=== PATIENT | male | born 1970 | race Caucasian/White ===

== ENCOUNTER 2018-04-20 15:32 | Inpatient (IN) | payer MEDICARE, MEDICAID ==
[~2018-04-20] VITALS: Ht 175.3 cm; Wt 108.0 kg
[2018-04-20 16:32] VITALS: BP 148/102
[2018-04-20 17:01] LABS: PLATELET COUNT 222 x10^3mcL (130-400)
[2018-04-20 17:04] LABS: RED CELL DISTRIBUTION WIDTH 16.5 % (11.5-14.5)
[2018-04-20 17:39] LABS: BAND NEUTROPHIL 2 % (0-10); BASOPHIL 0 % (0-2); MONOCYTE 6 % (0-7); SEGMENTED NEUTROPHILS 80 % (37-75); rbc morphology (normal/abnorm) ABNORMAL (NORMAL)
[2018-04-20 17:47] LABS: ALKALINE PHOSPHATASE 96 U/L (46-116); ALT/SGPT 259 U/L (16-63); AST/SGOT 621 U/L (15-37); CALCIUM 8.6 mg/dL (8.5-10.1); CARBON DIOXIDE 18.1 mmol/L (21-32); CHLORIDE SERUM 88 mmol/L (98-107); CREATININE SERUM 1.8 mg/dL (0.7-1.3); GFR1 43 mL/min; GLUCOSE SERUM 138 mg/dL (74-106); TOTAL PROTEIN, SERUM 7.8 g/dL (6.4-8.2)
[2018-04-20 18:30] LABS: ALBUMIN 2.8 g/dL (3.4-5.0)
[2018-04-20 18:31] LABS: POTASSIUM SERUM 6.2 mmol/L (3.5-5.1); SODIUM SERUM 120 mmol/L (136-145)
[2018-04-20 18:38] LABS: UA SPECIFIC GRAVITY >=1.030 (1.005-1.035); microscopic required? YES; urine erythrocyte 2+ (NEGATIVE)
[2018-04-20 20:01] LABS: CALCIUM 7.7 mg/dL (8.5-10.1); CARBON DIOXIDE 21.1 mmol/L (21-32); CREATININE SERUM 1.6 mg/dL (0.7-1.3); POTASSIUM SERUM 5.5 mmol/L (3.5-5.1)
[2018-04-20 20:08] LABS: AMPHETAMINE QUAL UR NONE DETECTED (See below)
[2018-04-20 20:57] LABS: MAGNESIUM 2.7 mg/dL (1.8-2.4); PHOSPHOROUS 8.4 mg/dL (2.5-4.9)
[2018-04-20 20:58] LABS: CHOLESTEROL/HDL RATIO 1.8
[2018-04-20 21:21] VITALS: BP 115/76
[2018-04-20 22:05] VITALS: BP 109/76
[2018-04-21] VITALS (20 sets, daily range): BP systolic 83–132; BP diastolic 40–82
[2018-04-21 04:58] LABS: BASOPHIL % 0.4 % (0-2); PLATELET COUNT 159 x10^3mcL (130-400); RED CELL DISTRIBUTION WIDTH 16.4 % (11.5-14.5)
[2018-04-21 05:29] LABS: BILIRUBIN TOTAL 0.65 mg/dL (0.20-1.00); CALCIUM 7.8 mg/dL (8.5-10.1); CARBON DIOXIDE 24.6 mmol/L (21-32); CREATININE SERUM 1.4 mg/dL (0.7-1.3); POTASSIUM SERUM 5.2 mmol/L (3.5-5.1); TOTAL PROTEIN, SERUM 6.3 g/dL (6.4-8.2)
[2018-04-21 05:36] LABS: ALBUMIN 2.2 g/dL (3.4-5.0); MAGNESIUM 2.3 mg/dL (1.8-2.4); PHOSPHOROUS 4.5 mg/dL (2.5-4.9)
[2018-04-22] VITALS (11 sets, daily range): BP systolic 95–123; BP diastolic 59–77; Ht 175.3 cm; Wt 108.0 kg
[2018-04-22 05:04] LABS: PLATELET COUNT 133 x10^3mcL (130-400)
[2018-04-22 05:05] LABS: BASOPHIL % 0 % (0-2); RED CELL DISTRIBUTION WIDTH 16.6 % (11.5-14.5)
[2018-04-22 05:08] LABS: BILIRUBIN DIRECT 0.45 mg/dL (0.0-0.2); BILIRUBIN TOTAL 0.62 mg/dL (0.20-1.00)
[2018-04-22 05:20] LABS: TOTAL PROTEIN, SERUM 5.3 g/dL (6.4-8.2)
[2018-04-22 05:22] LABS: CALCIUM 7.8 mg/dL (8.5-10.1); CARBON DIOXIDE 25.2 mmol/L (21-32); CHLORIDE SERUM 97 mmol/L (98-107); CREATININE SERUM 1.3 mg/dL (0.7-1.3); GFR1 > 60 mL/min; GLUCOSE SERUM 150 mg/dL (74-106); MAGNESIUM 2.2 mg/dL (1.8-2.4); POTASSIUM SERUM 4.3 mmol/L (3.5-5.1); SODIUM SERUM 127 mmol/L (136-145)
[2018-04-23 03:02] VITALS: BP 131/81
[2018-04-23 05:13] LABS: CALCIUM 8.1 mg/dL (8.5-10.1); CARBON DIOXIDE 25.5 mmol/L (21-32); CHLORIDE SERUM 96 mmol/L (98-107); CREATININE SERUM 1.2 mg/dL (0.7-1.3); GFR1 > 60 mL/min; GLUCOSE SERUM 108 mg/dL (74-106); MAGNESIUM 2.1 mg/dL (1.8-2.4); PHOSPHOROUS 3.9 mg/dL (2.5-4.9); POTASSIUM SERUM 4.3 mmol/L (3.5-5.1); SODIUM SERUM 129 mmol/L (136-145)
[2018-04-23 05:41] LABS: BASOPHIL % 0.3 % (0-2); PLATELET COUNT 115 x10^3mcL (130-400)
[2018-04-23 07:31] VITALS: BP 113/91
[2018-04-23 11:27] VITALS: BP 119/75
[2018-04-23 16:34] VITALS: BP 106/51
[2018-04-23 17:42] VITALS: BP 106/51
[2018-04-23 21:20] VITALS: BP 114/79
[2018-04-24 06:03] VITALS: BP 107/72
[2018-04-24 06:53] LABS: BASOPHIL % 0.1 % (0-2)
[2018-04-24 06:56] LABS: PLATELET COUNT 107 x10^3mcL (130-400); RED CELL DISTRIBUTION WIDTH 17.5 % (11.5-14.5)
[2018-04-24 07:00] LABS: CALCIUM 8.3 mg/dL (8.5-10.1); CHLORIDE SERUM 99 mmol/L (98-107); GFR1 > 60 mL/min; GLUCOSE SERUM 97 mg/dL (74-106); PHOSPHOROUS 4.3 mg/dL (2.5-4.9); POTASSIUM SERUM 4.2 mmol/L (3.5-5.1); SODIUM SERUM 132 mmol/L (136-145)
[2018-04-24 09:00] VITALS: BP 110/74
[2018-04-24 12:15] VITALS: BP 105/71
[2018-04-24 17:34] VITALS: BP 103/73
[2018-04-24 20:29] VITALS: BP 105/88
[2018-04-25 05:49] VITALS: BP 97/58
[2018-04-25] MEDS ORDERED: COR6 PO (07:00)
[2018-04-25] MEDS ORDERED: NITOUD TOP (07:00)
[2018-04-25] MEDS ORDERED: ECO81 PO (07:01)
[2018-04-25] MEDS ORDERED: ALDACTONE25 MG PO (07:09)
[2018-04-25 07:10] LABS: BASOPHIL % 0.6 % (0-2); PLATELET COUNT 117 x10^3mcL (130-400); RED CELL DISTRIBUTION WIDTH 16.9 % (11.5-14.5)
[2018-04-25 07:41] LABS: CALCIUM 8.5 mg/dL (8.5-10.1); CARBON DIOXIDE 28.3 mmol/L (21-32); CHLORIDE SERUM 99 mmol/L (98-107); CREATININE SERUM 0.9 mg/dL (0.7-1.3); GFR1 > 60 mL/min; GLUCOSE SERUM 92 mg/dL (74-106); MAGNESIUM 1.9 mg/dL (1.8-2.4); PHOSPHOROUS 4.6 mg/dL (2.5-4.9); POTASSIUM SERUM 3.5 mmol/L (3.5-5.1); SODIUM SERUM 131 mmol/L (136-145)
[2018-04-25 09:00] VITALS: BP 113/76
[2018-04-25] MEDS ORDERED: LASIX40 MG PO (09:55)
[2018-04-25] MEDS ORDERED: ISOSORBIDE MONO30 MG PO (09:58)
[2018-04-25] MEDS ORDERED: LISINOPRIL2.5 MG PO (10:03)
[2018-04-25 12:30] VITALS: BP 93/74
[2018-04-25 13:03] VITALS: BP 93/74
[2018-04-25] MEDS ORDERED: [UNRECOGNIZED DRUG - OTHER] MC (17:30)
[2018-04-25] MEDS ORDERED: ACCU-CHEK1 EACH MC (17:30)
[2018-04-25] MEDS ORDERED: ACCU-CHEK1 EAC1 MC (17:30)
== END 2018-04-25 17:21 | disposition home or self-care (01) | DRG 208 ==
LOC: ED 15:32 → IC 20:00 → DU 20:00 → IC 20:43 → DU 04-23 19:50
PROVIDERS: Emergency Medicine; Internal Medicine; ADMIT Family Medicine
PROC: 5A1945Z Respiratory Ventilation, 24-96 Consecutive Hours (ICD-10-PCS; principal; 2018-04-20)
PROC: 0BH17EZ Insertion of Endotracheal Airway into Trachea, Via Natural or Artificial Opening (ICD-10-PCS; 2018-04-20)
PROC: 06HY33Z Insertion of Infusion Device into Lower Vein, Percutaneous Approach (ICD-10-PCS; 2018-04-20)
PROC: 0HBMXZZ Excision of Right Foot Skin, External Approach (ICD-10-PCS; 2018-04-22)
DX: J96.01 Acute respiratory failure with hypoxia (principal); J69.0 Pneumonitis due to inhalation of food and vomit; E43 Unspecified severe protein-calorie malnutrition; G93.41 Metabolic encephalopathy; N17.0 Acute kidney failure with tubular necrosis; I50.43 Acute on chronic combined systolic (congestive) and diastolic (congestive) heart failure; K72.00 Acute and subacute hepatic failure without coma; E87.1 Hypo-osmolality and hyponatremia; L97.411 Non-pressure chronic ulcer of right heel and midfoot limited to breakdown of skin; I42.8 Other cardiomyopathies; M62.82 Rhabdomyolysis; E11.51 Type 2 diabetes mellitus with diabetic peripheral angiopathy without gangrene; E11.621 Type 2 diabetes mellitus with foot ulcer; E87.5 Hyperkalemia; F41.9 Anxiety disorder, unspecified; K70.30 Alcoholic cirrhosis of liver without ascites; R56.9 Unspecified convulsions; F10.20 Alcohol dependence, uncomplicated; R13.11 Dysphagia, oral phase; Y90.9 Presence of alcohol in blood, level not specified; Z68.35 Body mass index [BMI] 35.0-35.9, adult; Z79.84 Long term (current) use of oral hypoglycemic drugs
CPT/HCPCS: 36600; 82962; 83880; 87804; 90658; 92526-GN; 92610; 94150; 97112-GP; 97116-GP; 97530-GP; A4628; G0480; J0330; J0696; J1644; J1815; J1940; J2250; J2270; J2543; J2704; J3490; J7030; J7042; J7050; J7620; Q0092